=== PATIENT | male | born 1970 ===

== ENCOUNTER 2018-11-28 15:58 | Emergency (ER) | payer OTHER ==
[~2018-11-28] VITALS: Ht 152.4 cm; Wt 85.3 kg
[2018-11-28] MEDS ORDERED: LIALDA1.2 GM PO (16:35)
[2018-11-28] MEDS ORDERED: VOLTAREN-XR100 MG PO (19:34)
== END 2018-11-28 22:15 | disposition home or self-care (01) ==
LOC: ER 15:58
DX: S43.084A Other dislocation of right shoulder joint, initial encounter (principal); X58.XXXA Exposure to other specified factors, initial encounter; Y93.89 Activity, other specified; Y92.89 Other specified places as the place of occurrence of the external cause; Y99.8 Other external cause status